=== PATIENT | female | born 1955 | race Hispanic/Latino ===

== ENCOUNTER → 2022-08-16 | Outpatient (CLI) | payer OTHER ==
[~2022-08-16] VITALS: Ht 152.4 cm; Wt 98.4 kg
[~2022-08-16] MED LIST: AMLO-257 PO; ASPI-1443 PO; ATOR20TA65 PO; CEFAZOLIN SODIUM 2 GM VIAL IVPB SCH; GLIP10TA19 PO; LOSA100T59 PO; SEMA0.258 SQ; SITA1TAB6 PO
[2022-08-16 11:21] LABS: ALBUMIN 3.3 g/dL (3.5-5.0); CARBON DIOXIDE 28 mmol/L (21-32); CHLORIDE 103 mmol/L (101-111); CREATININE 0.8 mg/dL (0.5-1.5); GLOMERULAR FILTR. RATE CALC 80 mL/min (>90); GLUCOSE,RANDOM 178 mg/dL (70-105); POTASSIUM 3.3 mmol/L (3.5-5.1); SODIUM SERUM 138 mmol/L (136-145); UREA NITROGEN, BLOOD 18 mg/dL (7-18)
[2022-08-16 11:22] LABS: CRP QUANTITATIVE < 2.00 mg/L (0.00-9.0)
[2022-08-16 11:48] VITALS: BP 148/64
== END | disposition home or self-care (01) ==
LOC: DAH 10:00 → EDSTATUS 08-25 07:00
PROVIDERS: ATTEND Student in an Organized Health Care Education/Training Program
DX: Z01.818 Encounter for other preprocedural examination (principal); Z20.822 Contact with and (suspected) exposure to COVID-19; M65.341 Trigger finger, right ring finger
CPT/HCPCS: 36415; 80048; 82040; 84134; 86140; 87426; 93005

== ENCOUNTER 2022-09-08 06:06 | Day surgery (SDC) | payer OTHER ==
[2022-09-06 12:14] VITALS: BP 145/69
[2022-09-06 12:38] LABS: BASOPHILS % (AUTO) 0.6 % (0.0-5.0); EOSINOPHILS % (AUTO) 2.9 % (0.0-8.0); HEMATOCRIT 40.3 % (36-48); LYMPHOCYTES % (AUTO) 27.2 % (21.0-51.0); MEAN CORPUSCULAR HEMOGLOBIN 31.7 pg (27.0-33.0); MEAN CORPUSCULAR HGB CONC 32.8 g/dL (32.0-36.0); MEAN CORPUSCULAR VOLUME 96.6 fL (79-99); MONOCYTES % (AUTO) 7.5 % (3.0-13.0); NEUTROPHILS % (AUTO) 61.7 % (40.0-77.0); PLATELET COUNT (AUTO) 247 K/uL (130-400); RED BLOOD CELL COUNT(AUTO) 4.17 MIL/uL (4.00-5.50); WHITE BLOOD COUNT (AUTO) 8.6 K/uL (4.8-10.8)
[2022-09-06 12:57] LABS: ALBUMIN 3.2 g/dL (3.5-5.0); CARBON DIOXIDE 31 mmol/L (21-32); CHLORIDE 102 mmol/L (101-111); CREATININE 0.9 mg/dL (0.5-1.5); CRP QUANTITATIVE < 2.00 mg/L (0.00-9.0); GLOMERULAR FILTR. RATE CALC 70 mL/min (>90); GLUCOSE,RANDOM 220 mg/dL (70-105); POTASSIUM 3.4 mmol/L (3.5-5.1); SODIUM SERUM 140 mmol/L (136-145); UREA NITROGEN, BLOOD 16 mg/dL (7-18)
[2022-09-08] VITALS (15 sets, daily range): BP systolic 123–157; BP diastolic 43–72
[~2022-09-08] VITALS: Ht 149.9 cm; Wt 97.9 kg
[~2022-09-08 06:06] MED LIST changes: -CEFAZOLIN SODIUM 2 GM VIAL IVPB SCH
[2022-09-08] MEDS ORDERED: 0.9%NACL 1000ML 1,000 ML IV ONE (06:20)
[2022-09-08] MEDS: CEFAZOLIN SODIUM 2 GM VIAL ONE ×2 (06:26→07:10)
[2022-09-08] MEDS ORDERED: BUPIVACAINE/PF 0.25% 10ML VIAL IJ ONE (06:47)
[2022-09-08] MEDS ORDERED: MIDAZOLAM HCL 1 MG/ML 2ML VIAL ONE (06:50)
[2022-09-08] MEDS ORDERED: LIDOCAINE PF 100MG/5ML (2%) SYRINGE 5ML ONE (06:50)
[2022-09-08] MEDS ORDERED: PROPOFOL 10 MG/ML 20ML VIAL IV ONE (06:50)
[2022-09-08] MEDS ORDERED: FENTANYL CITRATE PF 50 MCG/1 ML 2ML VIAL ONE (06:51)
[2022-09-08] MEDS ORDERED: DEXAMETHASONE SOD PHOSPHATE 4 MG/ML 1ML VIAL ONE (06:52)
[2022-09-08] MEDS ORDERED: ONDANSETRON 4MG INJ ONE (06:52)
[2022-09-08] MEDS ORDERED: ACET-2079 PO (07:47)
== END 2022-09-08 09:15 | disposition home or self-care (01) ==
LOC: DAH 06:06
PROVIDERS: ATTEND Student in an Organized Health Care Education/Training Program
DX: M65.341 Trigger finger, right ring finger (principal); Z20.822 Contact with and (suspected) exposure to COVID-19; I10 Essential (primary) hypertension; E78.5 Hyperlipidemia, unspecified; E11.9 Type 2 diabetes mellitus without complications; Z79.899 Other long term (current) drug therapy; Z79.01 Long term (current) use of anticoagulants; Z98.890 Other specified postprocedural states; Z98.891 History of uterine scar from previous surgery; Z90.710 Acquired absence of both cervix and uterus; Z79.82 Long term (current) use of aspirin
CPT/HCPCS: 82040; 80048; 85025; 84134; 86140; 87426; 36415; 93005; 26055; 82948; J1100; A4663; J7030 ×2; J3010; J2001; J2250; J2704; J2405; J3490; J0690; A6223; A4649 ×2; A5120; A4215; A4223; A4222; A4221